=== PATIENT | male | born 1975 | race African-American/Black ===

== ENCOUNTER 2017-07-11 12:28 | Emergency (ER) | payer MEDICAID ==
--- NOTE | 2017-07-11 13:33 | Emergency Department Report ---
Chief Complaint: Hyperglycemia Stated Complaint: HIGH BG Time Seen by Provider: 07/11/17 13:33 - HPI History of Present Illness: Patient here reported that he was at his doctor's office and blood sugar was elevated and he was sent from his doctor's office for elevated blood sugar. Blood sugar is greater than 500. He reports urinary frequency, increased thirst and bitter taste that is mild. He said his throat is sore from being dry. Pain is 10 out of 10. Patient has a history of gastritis and schizoaffective disorder. Denies any nausea or vomiting. Denies any abdominal pain. Denies any dizziness. Denies any blood in his urine. Denies any urinary burning. Patient says this is the first time that he has elevated blood sugar. - ROS Review of Systems: All systems are negative unless stated in HPI above - Exam Vital Signs: Vital Signs 07/11/17 12:35 Temperature 97.6 F Pulse Rate 99 H Respiratory 18 Rate Blood Pressure 146/88 O2 Sat by Pulse 100 Oximetry Physical Exam: Gen.: This is a 42-year-old male well-nourished well-developed and nontoxic in appearance CV: S1, S2. Regular rate and rhythm negative murmur Mouth: Moist, no peritonsillar abscess MSE screening note: Focused history and physical exam performed. Due to findings the following was ordered: ED Medical Decision Making - Lab Data Result diagrams: 07/11/17 13:35 07/11/17 13:35 - Medical Decision Making MDM: Patient screened by provider in triage area. Appropriate protocol initiated and patient to be seen in main ED by ED Disposition for MSE Condition: Stable
[2017-07-11 13:52] LABS: Basophils % (Auto) 0.8 % (0.0-1.8); Eosinophils % (Auto) 0.6 % (0.0-4.3); Hematocrit 46.7 % (35.5-45.6); Hemoglobin 16.1 gm/dl (11.8-15.2); Mean Corpuscular HGB Conc 34 % (32-34); Mean Corpuscular Hemoglobin 29 pg (28-32); Mean Corpuscular Volume 84 fl (84-94); Platelet Count 308 K/mm3 (140-440); Red Blood Count 5.59 M/mm3 (3.65-5.03); White Blood Count 12.4 K/mm3 (4.5-11.0)
[2017-07-11 14:06] LABS: Anion Gap 29 mmol/L; BUN/Creatinine Ratio 22; Blood Urea Nitrogen 22 mg/dL (9-20); Calcium 9.3 mg/dL (8.4-10.2); Carbon Dioxide 20 mmol/L (22-30); Chloride 80.5 mmol/L (98-107); Potassium 5.3 mmol/L (3.6-5.0); Sodium 124 mmol/L (137-145)
[2017-07-11 14:13] LABS: Glucose 564 mg/dL (75-100)
--- NOTE | 2017-07-11 16:28 | Emergency Department Report ---
HPI - General Chief Complaint: Hyperglycemia Time Seen by Provider: 07/11/17 13:33 - HPI HPI: This is a 42-year-old male who presents to the emergency department with complaint of elevated blood sugar. Over the past month patient has felt as if he had a dry throat, increased thirst, increased urination. He denies any chest pain, abdominal pain, nausea, vomiting or fever. He has a history of gastritis and schizoaffective disorder but denies any history of diabetes. He went to a primary care clinic today and was found to have very elevated blood sugar and was sent in to be seen as a were unable to treat his hyperglycemia. He says that his primary care physician is Dr David Anderson, but Dr Anderson no longer practices primary care. ED Past Medical Hx - Past Medical History Hx Psychiatric Treatment: Yes (Schizoeffective disorder) Additional medical history: Gastritis - Surgical History Past Surgical History?: No - Social History Smoking Status: Never Smoker Substance Use Type: None - Medications Home Medications: Home Medications Medication Instructions Recorded Confirmed Last Taken Type Blood Sugar Diagnostic [Test 1 each MC PRN PRN #1 box 07/11/17 Unknown Rx Strips] Sub-Q Infusion Pump Accessory 1 each MC PRN PRN #1 each 07/11/17 Unknown Rx [Accu-Chek] Sulfamethoxazole/Trimethoprim 1 each PO BID #14 tablet 07/11/17 Unknown Rx [Bactrim DS TAB] metFORMIN [Glucophage] 500 mg PO BID #60 tablet 07/11/17 Unknown Rx ED Review of Systems ROS: Stated complaint: HIGH BG Other details as noted in HPI Comment: All other systems reviewed and negative Constitutional: denies: chills, fever Eyes: denies: eye pain, eye discharge, vision change ENT: denies: ear pain, throat pain Respiratory: denies: cough, shortness of breath, wheezing Cardiovascular: denies: chest pain, palpitations Endocrine: increased thirst, increased urine Gastrointestinal: denies: abdominal pain, nausea, diarrhea Genitourinary: frequency. denies: dysuria Musculoskeletal: denies: back pain, joint swelling, arthralgia Skin: denies: rash, lesions Neurological: denies: headache, weakness, paresthesias Physical Exam - Physical Exam Vital Signs: Vital Signs 07/11/17 12:35 Temperature 97.6 F Pulse Rate 99 H Respiratory 18 Rate Blood Pressure 146/88 O2 Sat by Pulse 100 Oximetry Physical Exam: GENERAL: The patient is well-developed well-nourished. HENT: Normocephalic. Atraumatic. Patient has moist mucous membranes. Oropharynx is clear without erythema but there are some exudate seen bilaterally. No drooling or trismus. EYES: Extraocular motions are intact. Pupils equal reactive to light bilaterally. NECK: Supple. Trachea is midline. CHEST/LUNGS: Clear to auscultation. There is no respiratory distress noted. HEART/CARDIOVASCULAR: Regular. There is no tachycardia. There is no gallop rub or murmur. ABDOMEN: Abdomen is soft, nontender. Patient has normal bowel sounds. There is no abdominal distention. SKIN: Skin is warm and dry. NEURO: The patient is awake, alert, and oriented. The patient is cooperative. The patient has no focal neurologic deficits. The patient has normal speech. MUSCULOSKELETAL: There is no tenderness or deformity. There is no limitation range of motion. There is no evidence of acute injury. ED Course Vital Signs 07/11/17 12:35 Temperature 97.6 F Pulse Rate 99 H Respiratory 18 Rate Blood Pressure 146/88 O2 Sat by Pulse 100 Oximetry ED Medical Decision Making - Lab Data Result diagrams: 07/11/17 13:35 07/11/17 19:14 - Medical Decision Making 42-year-old male presents with elevated blood sugar found at his clinic. He also complains of a sore throat. He does have some exudates but no significant erythema or hypertrophy. He will be started on antibiotics. His blood sugar did come back elevated at 550. There was an anion gap but no venous acidosis. He was given multiple liters of IV fluid resuscitation and IV insulin. He was reevaluated multiple times over multiple hours and is feeling improved. A repeat metabolic panel shows that the pseudohyponatremia has resolved and the anion gap is closing. Blood sugar came down to about 280. Vital signs stable throughout his ED course. The patient does have some ketonuria but without any significant acidosis he did not appear to be in overt diabetic ketoacidosis. The patient is a new-onset diabetic and it may be exacerbated by his pharyngitis. He will be started on metformin for the hyperglycemia. He was given referrals for primary care. He was given Accu-Chek and test strips prescription. We discussed in great detail dietary changes to be made to stay away from foods that are high and starches, carbohydrates and sugars. He will keep his blood sugar log. He will return to the ER with any worsening of symptoms or any acute distress. He ackknowledged understanding and agreed to the plan. - Differential Diagnosis DKA, HHNK, Strep pharyngitis, [facility] Critical Care Time: No Critical care attestation.: If time is entered above; I have spent that time in minutes in the direct care of this critically ill patient, excluding procedure time. ED Disposition Clinical Impression: Diabetes mellitus, new onset, Hyperglycemia Pharyngitis Qualifiers: Pharyngitis/tonsillitis etiology: unspecified etiology Qualified Code(s): J02.9 - Acute pharyngitis, unspecified Disposition: - TO HOME OR SELFCARE Is pt being admited?: No Condition: Stable Instructions: Diabetes Mellitus Type 2 in Adults (ED) Additional Instructions: Please follow up with a primary care physician in the next few days. Try and stay away from foods that are high in sugar, carbohydrates and starches to help with your blood sugar. Keep a blood sugar log. I started to on a medication called metformin that is to be taken twice daily. Return to the emergency Department with any worsening of your symptoms or any acute distress. Prescriptions: Blood Sugar Diagnostic [Test Strips] 1 each MC PRN PRN #1 box PRN Reason: Hyperglycemia metFORMIN [Glucophage] 500 mg PO BID #60 tablet Sub-Q Infusion Pump Accessory [Accu-Chek] 1 each MC PRN PRN #1 each PRN Reason: Hyperglycemia Sulfamethoxazole/Trimethoprim [Bactrim DS TAB] 1 each PO BID #14 tablet Referrals: TOR KRAUS MD [Primary Care Provider] - 3-5 Days MERLYN JOHNSON MD [Staff Physician] - 3-5 Days [facility] [Outside] - 3-5 Days Time of Disposition: 20:23
[2017-07-11] MEDS: NACL 0.9% 1000 ML 1,000 ML IV ONE ×4 (17:14→20:04)
[2017-07-11 18:25] LABS: Bilirubin,Urine NEG (Negative); Blood,Urine NEG (Negative); Ketones,Urine 80 mg/dL (Negative); Leukocyte Esterase,Urine NEG (Negative); Mucus,Urine FEW /HPF; Nitrite,Urine NEG (Negative); Protein,Urine <15 mg/dL mg/dL (Negative); Urobilinogen,Urine < 2.0 mg/dL (<2.0); WBC,Urine < 1.0 /HPF (0.0-6.0)
[2017-07-11 19:35] VITALS: BP 123/64
[2017-07-11 19:41] LABS: Anion Gap 23 mmol/L; BUN/Creatinine Ratio 21; Blood Urea Nitrogen 17 mg/dL (9-20); Calcium 7.1 mg/dL (8.4-10.2); Carbon Dioxide 20 mmol/L (22-30); Chloride 97.8 mmol/L (98-107); Glucose 381 mg/dL (75-100); Sodium 136 mmol/L (137-145)
== END 2017-07-11 21:53 | disposition home or self-care (01) ==
LOC: ED 12:28
DX: E11.65 Type 2 diabetes mellitus with hyperglycemia (principal); J02.9 Acute pharyngitis, unspecified; F25.9 Schizoaffective disorder, unspecified
CPT/HCPCS: 36415; 80048; 81001; 82805; 82962; 85025; 96361; 96374; 96376; 99284; J7030; J1815